=== PATIENT | female | born 1960 | race Caucasian/White ===

== ENCOUNTER 2017-08-27 07:50 | Day surgery (SDC) | payer OTHER ==
[~2017-08-27] VITALS: Ht 154.9 cm; Wt 62.3 kg
[~2017-08-27 07:50] MED LIST: AMLO5TAB22 PO
[2017-08-27 08:09] VITALS: BP 160/68; PULSE 68; RESP 20; TEMP 97.9; O2SAT 98
[2017-08-27] MEDS ORDERED: SODIUM CHLOR 0.9% 1000 ML INJ 1,000 ML IV SCH (08:15)
[2017-08-27] MEDS ORDERED: AMLO2.5T PO (08:20)
[2017-08-27] MEDS ORDERED: LIDOCAINE HCL 1% 20 ML VIAL ONE (08:47)
[2017-08-27] MEDS ORDERED: MIDAZOLAM HCL 2 MG/2 ML VIAL ONE (08:59)
--- NOTE | 2017-08-27 09:38 | PD.RAD ---
Post CT Procedure Prog Note Pre Procedure Diagnosis: (1) Liver masses Post Procedure Diagnosis: (1) Liver masses Procedure Date: Aug 27, 2017 Supervising Radiologist: Iain Murray JR Anesthesia: Conscious Sedation Plan of Activity Patient to Unit: ROPU Patient Condition: Good See PACS Report for procedural detail/treatment Biopsy Imaging Guidance: CT Biopsy Procedure: Liver Specimen: Core Biopsy Findings: 3 core samples of one hepatic lesion in this patient with numerous masses. Good samples noted. No bleeding on post CT images. Jr. Trevor,Iain Brown MD Aug 27, 2017 09:38
[2017-08-27 10:00] VITALS: BP 110/50; PULSE 57; RESP 20; TEMP 97.8; O2SAT 93
[2017-08-27 10:15] VITALS: BP 128/62; PULSE 61; RESP 20; O2SAT 93
[2017-08-27 10:30] VITALS: BP 142/61; PULSE 63; RESP 20; O2SAT 93
--- NOTE | 2017-08-27 10:36 | RADRPT ---
EXAM DATE/TIME: 08/27/2017 09:11 [place] COMPARISON: No previous studies available for comparison. INDICATIONS : Liver masses. History of breast cancer. SEDATION TIME: 15 minutes BIOPSY SITE: liver MEDICATION(S): 1.) 3 mg midazolam (Versed) IV 2.) 150 mcg fentanyl (Sublimaze) IV DEVICE(S): 1.) ? MEDICAL HISTORY : Hypertension. Carcinoma, breast. SURGICAL HISTORY : Mastectomy, right. ENCOUNTER: Initial ACUITY: 1 day PAIN SCORE: 0/10 LOCATION: Right upper quadrant A total of three core specimen(s) were obtained and sent to the laboratory for pathologic evaluation. PROCEDURE: 1. CT guided liver biopsy. 2. Conscious sedation with continuous EKG and oximetry monitoring. 3. EKG and oximetry remained stable throughout the procedure. Prior to the procedure informed consent was obtained. Any appropriate prior imaging studies were rev iewed. I reviewed the patient's outside studies. The patient has numerous hepatic masses. An anterior segmen t 4 lesion was targeted during the biopsy. Using automated exposure control and adjustment of the mA and/or kV according to patient size, radiation dose was kept as low as reasonably achievable to obtai n optimal diagnostic quality images. DICOM format image data is available electronically for review and comparison. The site was prepped in a sterile fashion. Full sterile technique was used, including cap, mask, roselia rile gloves and gown and a large sterile sheet. Hand hygiene and 2% chlorhexidine and/or betadine/al cohol prep was utilized per protocol for cutaneous antisepsis. The skin and subcutaneous tissues wer e infiltrated with local anesthetic solution. With CT guidance the previously identified target was localized. Biopsy was performed using the presc ribed needle as above. Adequate hemostasis was obtained with compression at the puncture site. Follow-up CT scan reveals no hemorrhage. The patient tolerated the procedure well and there were no complications. The patient was returned to the Radiology Outpatient Unit in stable condition. CONCLUSION: Uncomplicated CT guided core biopsy of one hepatic mass in this patient with multiple hepatic lesions . Iain Murray Jr., MD on August 27, 2017 at 10:32 Board Certified Radiologist. This report was verified electronically.
[2017-08-27 11:00] VITALS: BP 116/62; PULSE 62; RESP 20; O2SAT 93
[2017-08-27 11:30] VITALS: BP_SYST 116; BP_SYST 132; BP_DIAS 58; BP_DIAS 63; PULSE 60; RESP 20; O2SAT 93
== END 2017-08-27 13:05 | disposition home or self-care (01) ==
LOC: HRAD 07:50 → HRIP 07:53 → HRAD 13:05
PROVIDERS: ATTEND Internal Medicine Hematology & Oncology
DX: R16.0 Hepatomegaly, not elsewhere classified (principal); R74.0 Nonspecific elevation of levels of transaminase and lactic acid dehydrogenase [LDH]
CPT/HCPCS: 47000; 77012; 88307; J2250; J3010